=== PATIENT | female | born 1955 | race Caucasian/White ===

== ENCOUNTER 2017-02-08 17:36 | Inpatient (IN) | payer OTHER ==
[~2017-02-08] VITALS: Ht 167.6 cm; Wt 86.6 kg
[~2017-02-08 17:36] MED LIST: BACTRIM DS1 TAB PO; BG MC; CLE6PM IV; CLINDAMYCIN HC300 MG PO; COL100 PO; CYMBALTA60 M1 PO; HEP5I SC; HUMULIN R100 U/1 M1 SC; HYDROCHLOROTH12.5 M2 PO; INS7030 SC; LAC PO; LEV500PM IV; LIO10 PO; MAC100 PO; MORPHINE ER PO; MORPHINE SULFAT30 M2 PO; NAPROSYN500 MG PO; NEU100 PO; NEURONTIN800 MG PO; NOR10T; OMEPRAZOLE40 M1 PO; OXYCODONE AND A1 TA1 PO; PER5 PO; PERCOCET1 TA5 PO; RANITIDINE300 M1 PO; ROX5 PO; SOM350 PO; TIZANIDINE HCL4 MG PO; TRA50 PO; TRAMADOL HCL50 MG PO; TRE400 PO; ZAN4; ZESTRIL20 MG PO
--- NOTE | 2017-02-08 18:32 | NUR ---
PT IS A 61 YEAR ODL FEMALE, PRESENTS TO ED WITH C/O LEFT SIDED CHEST PAIN THAT RADAITES TO MID CHEST AREA, WITH A SHARP LIKE QUALITY AND CONSTANT SINCE 0200 THIS MORNING, PT REPORTS PAIN IS MILD AT TIMES, THEN GETS RANDOMLY EXACERBATED THROUGHOUT THE DAY. PT REPORTS PAIN WHEN SHE APPLIES PRESSURE TO LEFT CHEST AREA. PT BREATHING IS EVEN AND UNLABORED, NO S/S OF RSEPRAITORY DISTRESS. SPEECH IS CLEAR AND APPROPRIATE. PT A/O X4. PT DENIES ANY N/V/D/C. PT DENIES ANY DIZZINESS. PT HOOKED TO FULL BOOKKEEPING ASSISTANT. PT AWIAITING MSE.
--- NOTE | 2017-02-08 18:50 | NUR ---
PT GIVEN FIRST TAB OF NITRO 0.4MG SUBLINGUALLY. PT REPORTS CHEST PAIN OF 9/10 AT THIS TIME.
[2017-02-08 18:52] LABS: BASOPHIL % 0.5 % (0-2); PLATELET COUNT 220 x10^3mcL (130-400)
--- NOTE | 2017-02-08 18:55 | NUR ---
PT GIVEN 2ND TAB OF NITRO 0.4 MG SUBLINGUAL. PT REPORTS CHEST PAIN REMAINS AT 9/10.
[2017-02-08 18:58] LABS: RED CELL DISTRIBUTION WIDTH 15.1 % (11.5-14.5)
--- NOTE | 2017-02-08 19:00 | NUR ---
PT GIVEN 3RD TAB OF NITRO 0.4 MG SUBLINGUALLY. PT REPORTS CHEST PAIN WENT TO 8/10.
[2017-02-08 19:02] LABS: CALCIUM 10.8 mg/dL (8.5-10.1); CARBON DIOXIDE 30.1 mmol/L (21-32); CREATININE SERUM 1.5 mg/dL (0.6-1.0); POTASSIUM SERUM 4.4 mmol/L (3.5-5.1)
[2017-02-08 19:07] LABS: BILIRUBIN TOTAL 0.2 mg/dL (0.20-1.00)
[2017-02-08 19:08] LABS: ALBUMIN 3.3 g/dL (3.4-5.0)
--- NOTE | 2017-02-08 19:11 | NUR ---
REPORT GIVEN TO OLVIN PUGA, SHE WILL ASSUME CARE PRIMARY RN.
--- NOTE | 2017-02-08 19:40 | NUR ---
MEDS ADMIN PER MD ORDER FOR PAIN; SEE EMAR. PT STS PAIN WAS AT 7.5/10 AFTER ADMIN OF 3 NITRO TABS. PT AAO4; RESP E/U AT THIS TIME
--- NOTE | 2017-02-08 19:45 | NUR ---
BILAT NARES SWABBED FOR MRSA SCREENING.
--- NOTE | 2017-02-08 19:48 | NUR ---
REPORT GIVEN TO HALLIE TO ASSUME CARE OF PT
[2017-02-08] MEDS ORDERED: NOR5 PO (19:52)
[2017-02-08] MEDS ORDERED: MOT800 PO (19:52)
[2017-02-08] MEDS ORDERED: UNKNOWN INSULIN SQ (19:53)
[2017-02-08] MEDS ORDERED: DILAUDID4 MG PO (19:53)
[2017-02-08 20:32] VITALS: BP 157/86
[2017-02-08 20:35] LABS: CHOLESTEROL/HDL RATIO 3.9; MAGNESIUM 1.7 mg/dL (1.8-2.4); PHOSPHOROUS 3.1 mg/dL (2.5-4.9)
[2017-02-08 20:44] LABS: FREE T4 1.15 ng/dL (0.76-1.46); FREE THYROXINE INDEX 2.7 ug/dL (1.4-4.5); T4(THYROXINE) 7.7 ug/dL (4.7-13.3)
[2017-02-08 20:46] VITALS: BP 157/86
--- NOTE | 2017-02-08 21:00 | NUR ---
PATIENT RECEIVED FROM ED VIA GUERNEY ASSISTED BY RN. PATIENT C/O 6/10 INTERMITTENT SHARP CHEST PAIN, TOLERABLE AT THIS TIME. IV SITE TO RIGHT AC, PATENT AND INTACT. IV FLUID STARTED PER DOCTOR'S ORDER. BED IN LOWEST POSITION. PATIENT ORIENTED TO ROOM AND CALL LIGHT. WILL CONTINUE TO MONITOR.
[2017-02-08 21:13] LABS: T3 TOTAL 0.86 ng/mL
[2017-02-09] MEDS ORDERED: ALD25 PO (01:33)
[2017-02-09] MEDS ORDERED: RANITIDINE HYD300 MG PO (01:43)
[2017-02-09] MEDS ORDERED: CILOSTAZOL100 M1 PO ×2 (02:36→02:37)
[2017-02-09] MEDS ORDERED: HYDROMORPHONE PO (02:51)
--- NOTE | 2017-02-09 05:03 | NUR ---
PATIENT RESTED THROUGHOUT THE NIGHT. NO C/O CHEST PAIN. SAFETY AND COMFORT MEASURES MAINTAINED. BED IN LOWEST POSITION. CALL LIGHT WITHIN REACH. WILL CONTINUE TO MONITOR AND ENDORSE TO NEXT SHIFT NURSE.
[2017-02-09 05:59] VITALS: BP 141/75
[2017-02-09 06:32] LABS: BASOPHIL % 0.4 % (0-2); PLATELET COUNT 205 x10^3mcL (130-400)
[2017-02-09 06:45] LABS: CALCIUM 10.3 mg/dL (8.5-10.1); CARBON DIOXIDE 24.3 mmol/L (21-32); CREATININE SERUM 1.1 mg/dL (0.6-1.0); MAGNESIUM 1.8 mg/dL (1.8-2.4); POTASSIUM SERUM 4.2 mmol/L (3.5-5.1); RED CELL DISTRIBUTION WIDTH 15.1 % (11.5-14.5)
--- NOTE | 2017-02-09 08:00 | NUR ---
RECEIVED PATIENT A/A/OX3. DENIED CHEST PAIN NOW. TELE#23 = SR; HR =78. NO RESP DISTRESS ON RA. LT FOOT PARTIAL AMPUTATED. AMBULATED WITH CANE. IVF OF NS 100CC/HR INFUSIGN WELLT O LAC. IV SITE CLEAN. FINISHED 100% OF BREAKFAST. CALL LIGHT IN REACH.
--- NOTE | 2017-02-09 08:15 | NUR ---
DR. GR AND MEDICAL TEAM MADE MORNING ROUND. PLAN OF CARE DISCUSSED WITH PATIENT, INCLUDED WITH DR. BLACKWOOD, CHEMICAL CELL CHANGER CONSULTATION. PATIENT AGREED WITH PLAN OF CARE.
[2017-02-09 10:10] VITALS: BP 126/66
[2017-02-09 13:56] VITALS: BP 101/77
[2017-02-09 18:02] LABS: UA SPECIFIC GRAVITY <=1.005 (1.005-1.035); microscopic required? YES; urine erythrocyte NEGATIVE (NEGATIVE)
[2017-02-09 18:13] LABS: AMPHETAMINE QUAL UR NONE DETECTED (NEG <=1000)
--- NOTE | 2017-02-09 18:49 | NUR ---
NO CHEST PAIN THIS SHIFT. TRIPONIN NEGATIVE X3. ENDORSED CARE TO NOC NURSE.
--- NOTE | 2017-02-09 19:25 | NUR ---
PT ALERT/ORIENTED X4. NO C/O PAIN. TELE # 23, SR, HR; 63. PT STATES WANTS TO GO HOME WANTS TO SPEAK WITH THE DR., DR PETTY MADE AWARE OF PT REQUEST. PT ASSESSED; SEE NSG FLOWSHEET. SAFETY REINFORCED; SEE EDUCAT SHEET. WILL CONTINUE TO MONITOR.
--- NOTE | 2017-02-09 20:00 | NUR ---
DR MENDEZ AND MYSELF IN PT ROOM. DR MENDEZ INFORMING PT OF THE REASONING TO STAY IN THE HOSPITAL.
[2017-02-09 20:06] VITALS: BP 151/46
[2017-02-09 20:14] VITALS: BP 149/70
--- NOTE | 2017-02-09 20:30 | NUR ---
PT STATED SHE WILL NOT LEAVE AND STAY IN THE HOSPITAL.
--- NOTE | 2017-02-09 21:00 | NUR ---
INFORMED DR MENDEZ OF PT UA RESULTS, NO NEW ORDERS GIVEN OF YET.
--- NOTE | 2017-02-09 22:22 | NUR ---
PT REQUESTING SLEEP AID. T/C TO DR PETTY AND INFORM HIM OF PT REQUEST.
--- NOTE | 2017-02-09 22:48 | NUR ---
NO SLEEP AID GIVEN AT THIS TIME, PT SLEEPING.
--- NOTE | 2017-02-10 01:25 | NUR ---
PT SLEEPING.NO DISTRESS NOTED. WILL CONTINUE TO MONITOR.
--- NOTE | 2017-02-10 02:54 | NUR ---
PT AWAKE. NO C/O PAIN. WILL CONTINUE TO MONITOR.
--- NOTE | 2017-02-10 05:23 | NUR ---
PT SLEPT IN LONG INTERVALS THROUGHOUT THE NIGHT. NO DISTRESS NOTED. NO C/O CP. WILL CONTINUE TO MONITOR.
[2017-02-10 05:56] VITALS: BP 154/72
[2017-02-10 06:48] LABS: CALCIUM 10.7 mg/dL (8.5-10.1); CARBON DIOXIDE 25.5 mmol/L (21-32); CHLORIDE SERUM 108 mmol/L (98-107); GFR1 > 60 mL/min; GLUCOSE SERUM 176 mg/dL (74-106); MAGNESIUM 1.9 mg/dL (1.8-2.4); POTASSIUM SERUM 5.1 mmol/L (3.5-5.1); SODIUM SERUM 139 mmol/L (136-145)
--- NOTE | 2017-02-10 07:20 | NUR ---
RECEIVED PATIENT AWAKE/ALERT SIT AT SIDE OF BED, DENIES CP, STATE FEEL BETTER WANT TO GO HOME. INFORM PATIENT WHEN DOCTOR MAKE ROUND WILL FIND IF MD DISCHARGE TODAY. POC UPDATED. CALL LIGHT WITHIN REACH.
[2017-02-10 09:54] VITALS: BP 159/70
--- NOTE | 2017-02-10 10:24 | NUR ---
PATIENT SIT IN A CHAIR AT THIS TIME, ALL DUE MEDS GIVEN. C/O IV HURT CHECKING SITE NOTED REDNESS; DC'D IV SITE AND BA APPLIED. GIVE PATIENT DTR PHONE # PER REQUEST; PER PATIENT TRY TO CALL DTR SHAJI NO ANSWER AND LEFT MESSAGE. MOTRIN 800MG PO GIVEN FOR C/O 6/10 PAIN TO LEG. NEEDS ANTICIPATED.
[2017-02-10 11:25] VITALS: BP 159/70
[2017-02-10] MEDS ORDERED: HYDROMORPHONE PO (12:06)
[2017-02-10] MEDS ORDERED: RANITIDINE HYD300 MG PO (12:06)
[2017-02-10] MEDS ORDERED: BAY PO (12:08)
[2017-02-10] MEDS ORDERED: ATORVASTATIN CA40 M1 PO (12:09)
--- NOTE | 2017-02-10 12:10 | NUR ---
PATIENT ALREADY GET DRESS STATE CAN'T WAIT FOR DOCTOR TO FINISH UP DISCHARGE PAPERWORK; PATIENT STATE "I HAVE TO LEAVE MY DTR WAITING FOR HER IN THE CAR." DR. LAW WAS MADE AWARE PATIENT CAN NOT WAIT AND WILL LEAVE AMA. PATIENT SIGN AMA; ASSISTING PATIENT OUT TO LOBBY WITH ALL BELONGINGS. ADVISE PATIENT TO F/U WITH PCP SOON POSSIBLE. PATIENT VERBALIZE WILL CALL DOCTOR TOMORROW.
[2017-02-10] MEDS ORDERED: NOVI SQ (12:11)
== END 2017-02-10 12:15 | disposition left against medical advice (07) | DRG 205 ==
LOC: ED 17:36 → DU 19:32 → MU 02-10 11:04
PROVIDERS: Emergency Medicine; ADMIT Family Medicine
DX: M94.0 Chondrocostal junction syndrome [Tietze] (principal); N17.0 Acute kidney failure with tubular necrosis; E83.42 Hypomagnesemia; E11.65 Type 2 diabetes mellitus with hyperglycemia; E11.51 Type 2 diabetes mellitus with diabetic peripheral angiopathy without gangrene; E11.40 Type 2 diabetes mellitus with diabetic neuropathy, unspecified; E78.1 Pure hyperglyceridemia; I10 Essential (primary) hypertension; I08.1 Rheumatic disorders of both mitral and tricuspid valves; M47.896 Other spondylosis, lumbar region; E66.9 Obesity, unspecified; Z68.30 Body mass index [BMI] 30.0-30.9, adult; Z79.4 Long term (current) use of insulin; Z89.422 Acquired absence of other left toe(s); Z72.0 Tobacco use
CPT/HCPCS: 83880; 84439; J1815; J2270; J7030; Q0092

== ENCOUNTER 2018-01-14 20:38 | Inpatient (IN) | payer OTHER ==
[~2018-01-14] VITALS: Ht 167.6 cm; Wt 83.0 kg
[~2018-01-14 20:38] MED LIST changes: +ALD25 PO; +ATORVASTATIN CA40 M1 PO; +BAY PO; +CILOSTAZOL100 M1 PO; +DILAUDID4 MG PO; +HYDROMORPHONE PO; +MOT800 PO; +NOR5 PO; +NOVI SQ; +RANITIDINE HYD300 MG PO; +UNKNOWN INSULIN SQ
[2018-01-14 21:34] LABS: BASOPHIL % 0.2 % (0-2); PLATELET COUNT 304 x10^3mcL (130-400)
[2018-01-14 21:44] LABS: CALCIUM 11.9 mg/dL (8.5-10.1); CARBON DIOXIDE 23.9 mmol/L (21-32); CREATININE SERUM 1.8 mg/dL (0.6-1.0); POTASSIUM SERUM 3.6 mmol/L (3.5-5.1)
[2018-01-14 21:48] LABS: BILIRUBIN TOTAL 0.3 mg/dL (0.20-1.00); TOTAL PROTEIN, SERUM 7.9 g/dL (6.4-8.2)
[2018-01-14 21:50] LABS: ALBUMIN 2.8 g/dL (3.4-5.0)
[2018-01-15] MEDS ORDERED: CLOZAPINE100 MG PO ×3 (00:58→11:00)
[2018-01-15] MEDS ORDERED: PRILOSEC OTC20 M1 PO (00:58)
[2018-01-15] MEDS ORDERED: CLINDAMYCIN HC300 MG PO (00:59)
[2018-01-15] MEDS ORDERED: ZANAFLEX CAPSULE4 MG PO (01:00)
[2018-01-15] MEDS ORDERED: LINZESS145 MC1 (01:00)
[2018-01-15 01:23] LABS: microscopic required? YES; urine erythrocyte 1+ (NEGATIVE)
[2018-01-15 01:32] LABS: AMPHETAMINE QUAL UR NONE DETECTED
[2018-01-15 01:33] VITALS: BP 121/621
[2018-01-15 01:37] LABS: PHOSPHOROUS 3.6 mg/dL (2.5-4.9)
[2018-01-15 01:38] LABS: CHOLESTEROL/HDL RATIO 4.6
[2018-01-15 02:05] LABS: T3 TOTAL 0.64 ng/mL
[2018-01-15 02:06] LABS: FREE T4 1.41 ng/dL (0.76-1.46); FREE THYROXINE INDEX 3.2 ug/dL (1.4-4.5); T4(THYROXINE) 8.3 ug/dL (4.7-13.3)
[2018-01-15 02:30] LABS: RED BLOOD CELLS 4.04 M/mm3 (4.10-5.10)
[2018-01-15 02:31] LABS: IRON 15 ug/dL (50-170); TOTAL IRON BINDING CAPACITY 203 ug/dL (250-450)
[2018-01-15 05:39] VITALS: BP 101/61
[2018-01-15 07:19] LABS: CALCIUM 10.7 mg/dL (8.5-10.1); CARBON DIOXIDE 21.4 mmol/L (21-32); CREATININE SERUM 1.6 mg/dL (0.6-1.0); MAGNESIUM 1.7 mg/dL (1.8-2.4); PHOSPHOROUS 3.5 mg/dL (2.5-4.9); POTASSIUM SERUM 3.5 mmol/L (3.5-5.1)
[2018-01-15 07:22] LABS: BASOPHIL % 0.2 % (0-2); PLATELET COUNT 306 x10^3mcL (130-400); RED CELL DISTRIBUTION WIDTH 13.3 % (11.5-14.5)
[2018-01-15 10:19] VITALS: BP 107/54
[2018-01-15 14:16] VITALS: BP 93/45
[2018-01-15 17:48] VITALS: BP 108/52
[2018-01-15 21:33] VITALS: BP 143/67
[2018-01-16 06:19] VITALS: BP 124/54
[2018-01-16 07:26] LABS: CALCIUM 11.2 mg/dL (8.5-10.1); CARBON DIOXIDE 21.2 mmol/L (21-32); CREATININE SERUM 1.4 mg/dL (0.6-1.0); MAGNESIUM 2.2 mg/dL (1.8-2.4); PHOSPHOROUS 3.1 mg/dL (2.5-4.9); POTASSIUM SERUM 4.5 mmol/L (3.5-5.1)
[2018-01-16 07:37] LABS: BASOPHIL % 0.5 % (0-2); PLATELET COUNT 292 x10^3mcL (130-400); RED CELL DISTRIBUTION WIDTH 13.5 % (11.5-14.5)
[2018-01-16 09:15] VITALS: BP 116/64
[2018-01-16 17:48] VITALS: BP 146/63
[2018-01-16 21:07] VITALS: BP 142/77
[2018-01-17 05:46] VITALS: BP 127/54
[2018-01-17 07:19] LABS: BASOPHIL % 0.2 % (0-2); PLATELET COUNT 302 x10^3mcL (130-400); RED CELL DISTRIBUTION WIDTH 13.4 % (11.5-14.5)
[2018-01-17 07:28] LABS: CALCIUM 11.5 mg/dL (8.5-10.1); CARBON DIOXIDE 20.8 mmol/L (21-32); CREATININE SERUM 1.1 mg/dL (0.6-1.0); MAGNESIUM 1.9 mg/dL (1.8-2.4); PHOSPHOROUS 2.1 mg/dL (2.5-4.9); POTASSIUM SERUM 5.2 mmol/L (3.5-5.1)
[2018-01-17 10:20] VITALS: BP 136/62
[2018-01-17 12:21] VITALS: BP 104/54
[2018-01-17 13:38] VITALS: BP 104/54
[2018-01-17 15:32] VITALS: Ht 167.6 cm; Wt 83.0 kg
[2018-01-17 17:42] VITALS: BP 112/46
[2018-01-17 21:38] VITALS: BP 127/58
[2018-01-18 05:09] VITALS: BP 157/71
[2018-01-18 07:01] LABS: CARBON DIOXIDE 23.7 mmol/L (21-32); CHLORIDE SERUM 109 mmol/L (98-107); CREATININE SERUM 0.9 mg/dL (0.6-1.0); GFR1 > 60 mL/min; GLUCOSE SERUM 125 mg/dL (74-106); PHOSPHOROUS 2.4 mg/dL (2.5-4.9); POTASSIUM SERUM 4.7 mmol/L (3.5-5.1); SODIUM SERUM 140 mmol/L (136-145)
[2018-01-18 07:36] LABS: BASOPHIL % 1.4 % (0-2); PLATELET COUNT 294 x10^3mcL (130-400); RED CELL DISTRIBUTION WIDTH 13.4 % (11.5-14.5)
[2018-01-18 10:21] VITALS: BP 157/68
[2018-01-18] MEDS ORDERED: LAC PO (12:59)
[2018-01-18] MEDS ORDERED: LEVOFLOXACIN750 M1 PO (12:59)
[2018-01-18] MEDS ORDERED: CLINDAMYCIN HC300 MG PO (12:59)
[2018-01-18 15:06] VITALS: BP 138/67
== END 2018-01-18 16:55 | disposition left against medical advice (07) | DRG 579 ==
LOC: ED 20:38 → DU 01-15 00:37
PROVIDERS: Emergency Medicine; Family Medicine; Student in an Organized Health Care Education/Training Program; Surgery
PROC: 0W950ZZ Drainage of Lower Jaw, Open Approach (ICD-10-PCS; principal; 2018-01-17 11:00)
DX: L03.211 Cellulitis of face (principal); E43 Unspecified severe protein-calorie malnutrition; N17.0 Acute kidney failure with tubular necrosis; N39.0 Urinary tract infection, site not specified; L02.31 Cutaneous abscess of buttock; E87.1 Hypo-osmolality and hyponatremia; E11.65 Type 2 diabetes mellitus with hyperglycemia; E11.51 Type 2 diabetes mellitus with diabetic peripheral angiopathy without gangrene; E83.39 Other disorders of phosphorus metabolism; E83.52 Hypercalcemia; M54.9 Dorsalgia, unspecified; G89.29 Other chronic pain; D64.89 Other specified anemias; I10 Essential (primary) hypertension; E78.5 Hyperlipidemia, unspecified; Z98.1 Arthrodesis status; Z89.412 Acquired absence of left great toe; Z68.32 Body mass index [BMI] 32.0-32.9, adult
CPT/HCPCS: 82652; 83880; 84439; 94150; J0330; J1644; J1885; J1956; J2001; J2405; J2704; J3010; J3490; J7030; Q0092; Q9967

== ENCOUNTER 2018-02-24 14:08 | Emergency (ER) | payer OTHER ==
[~2018-02-24] VITALS: Ht 167.6 cm; Wt 81.6 kg
[~2018-02-24 14:08] MED LIST changes: +CLOZAPINE100 MG PO; +LEVOFLOXACIN750 M1 PO; +LINZESS145 MC1; +PRILOSEC OTC20 M1 PO; +ZANAFLEX CAPSULE4 MG PO
[2018-02-24 14:24] VITALS: Ht 167.6 cm; Wt 81.6 kg
[2018-02-24 21:38] VITALS: BP 106/67
== END 2018-02-24 21:38 | disposition home or self-care (01) ==
LOC: ED 14:08
DX: T40.2X1A Poisoning by other opioids, accidental (unintentional), initial encounter (principal); Y92.89 Other specified places as the place of occurrence of the external cause; I10 Essential (primary) hypertension; E11.9 Type 2 diabetes mellitus without complications; Z90.710 Acquired absence of both cervix and uterus
CPT/HCPCS: J1885

== ENCOUNTER 2018-06-26 07:27 | Inpatient (IN) | payer OTHER ==
[~2018-06-26] VITALS: Ht 167.6 cm; Wt 83.3 kg
[2018-06-26 08:37] LABS: RED CELL DISTRIBUTION WIDTH 13.6 % (11.5-14.5)
[2018-06-26 08:45] LABS: BASOPHIL % 0 % (0-2); PLATELET COUNT 218 x10^3mcL (130-400)
[2018-06-26 09:09] LABS: ALBUMIN 2.7 g/dL (3.4-5.0); BILIRUBIN TOTAL 0.18 mg/dL (0.20-1.00); CALCIUM 9.2 mg/dL (8.5-10.1); CARBON DIOXIDE 13.3 mmol/L (21-32); POTASSIUM SERUM 4.7 mmol/L (3.5-5.1); T4(THYROXINE) 4.6 ug/dL (4.7-13.3); TOTAL PROTEIN, SERUM 6.4 g/dL (6.4-8.2)
[2018-06-26 09:10] LABS: CREATININE SERUM 4.8 mg/dL (0.6-1.0)
[2018-06-26 09:23] LABS: microscopic required? YES; urine erythrocyte 3+ (NEGATIVE)
[2018-06-26 11:19] LABS: AMPHETAMINE QUAL UR NONE DETECTED (See below)
[2018-06-26 12:07] VITALS: BP 96/44
[2018-06-26 12:44] LABS: CARBON DIOXIDE 10.7 mmol/L (21-32); CREATININE SERUM 4.7 mg/dL (0.6-1.0); POTASSIUM SERUM 4.6 mmol/L (3.5-5.1)
[2018-06-26] MEDS ORDERED: RANITIDINE HYD300 MG PO (14:45)
[2018-06-26] MEDS ORDERED: CYMBALTA60 M1 PO (14:46)
[2018-06-26] MEDS ORDERED: TIZANIDINE HCL4 MG PO (14:47)
[2018-06-26] MEDS ORDERED: NEURONTIN800 MG PO (14:48)
[2018-06-26] MEDS ORDERED: ZOF4 PO (14:50)
[2018-06-26] MEDS ORDERED: CYCLOBENZAPRINE10 MG PO (14:58)
[2018-06-26] MEDS ORDERED: ASPIR 8181 MG PO (14:58)
[2018-06-26] MEDS ORDERED: PHENTERMINE HYD30 MG PO (15:02)
[2018-06-26] MEDS ORDERED: LINZESS145 MC1 PO (15:03)
[2018-06-26] MEDS ORDERED: DOXYCYCLINE HY100 MG PO (15:04)
[2018-06-26] MEDS ORDERED: IBUPROFEN400 MG PO (15:06)
[2018-06-26] MEDS ORDERED: CLEOCIN HCL300 MG PO (15:07)
[2018-06-26] MEDS ORDERED: FUROSEMIDE20 MG PO (15:09)
[2018-06-26] MEDS ORDERED: LIPITOR40 MG PO (15:10)
[2018-06-26 15:36] VITALS: BP 105/49
[2018-06-26 18:13] LABS: CALCIUM 9.1 mg/dL (8.5-10.1); CARBON DIOXIDE 10.2 mmol/L (21-32)
[2018-06-26 18:36] LABS: CREATININE SERUM 4.6 mg/dL (0.6-1.0)
[2018-06-26 19:15] VITALS: BP 81/42
[2018-06-26 20:37] LABS: CALCIUM 8.8 mg/dL (8.5-10.1); POTASSIUM SERUM 3.5 mmol/L (3.5-5.1)
[2018-06-26 20:54] LABS: CREATININE SERUM 4.6 mg/dL (0.6-1.0)
[2018-06-27] VITALS (13 sets, daily range): BP systolic 80–132; BP diastolic 44–80
[2018-06-27 00:48] LABS: CARBON DIOXIDE 10.7 mmol/L (21-32); POTASSIUM SERUM 4.3 mmol/L (3.5-5.1)
[2018-06-27 00:51] LABS: CREATININE SERUM 4.3 mg/dL (0.6-1.0)
[2018-06-27 05:51] LABS: CALCIUM 8.6 mg/dL (8.5-10.1); CARBON DIOXIDE 15.1 mmol/L (21-32); POTASSIUM SERUM 3.1 mmol/L (3.5-5.1)
[2018-06-27 05:55] LABS: CREATININE SERUM 4.4 mg/dL (0.6-1.0)
[2018-06-27 08:29] LABS: CALCIUM 8.7 mg/dL (8.5-10.1); CARBON DIOXIDE 16.8 mmol/L (21-32); POTASSIUM SERUM 3.4 mmol/L (3.5-5.1)
[2018-06-27 08:42] LABS: CREATININE SERUM 4.5 mg/dL (0.6-1.0)
[2018-06-27 18:57] LABS: CALCIUM 8.6 mg/dL (8.5-10.1); CARBON DIOXIDE 15.6 mmol/L (21-32); POTASSIUM SERUM 3.9 mmol/L (3.5-5.1)
[2018-06-27 19:05] LABS: CREATININE SERUM 4.1 mg/dL (0.6-1.0)
[2018-06-28] VITALS (19 sets, daily range): BP systolic 101–142; BP diastolic 56–88
[2018-06-28 05:43] LABS: PLATELET COUNT 179 x10^3mcL (130-400)
[2018-06-28 05:47] LABS: BASOPHIL % 0 % (0-2)
[2018-06-28 05:58] LABS: BILIRUBIN TOTAL 0.3 mg/dL (0.20-1.00); CALCIUM 8.6 mg/dL (8.5-10.1); CARBON DIOXIDE 19.1 mmol/L (21-32); CREATININE SERUM 3.8 mg/dL (0.6-1.0); MAGNESIUM 1.4 mg/dL (1.8-2.4); PHOSPHOROUS 3.8 mg/dL (2.5-4.9); POTASSIUM SERUM 3.5 mmol/L (3.5-5.1)
[2018-06-28 06:02] LABS: ALBUMIN 2.1 g/dL (3.4-5.0); TOTAL PROTEIN, SERUM 5.7 g/dL (6.4-8.2)
[2018-06-29] VITALS (18 sets, daily range): BP systolic 112–163; BP diastolic 59–121; Ht 167.6 cm; Wt 83.3 kg
[2018-06-29 05:43] LABS: PLATELET COUNT 194 x10^3mcL (130-400)
[2018-06-29 05:44] LABS: BASOPHIL % 0 % (0-2)
[2018-06-29 05:50] LABS: BILIRUBIN TOTAL 0.34 mg/dL (0.20-1.00); CALCIUM 9.5 mg/dL (8.5-10.1); PHOSPHOROUS 3.3 mg/dL (2.5-4.9)
[2018-06-29 05:52] LABS: ALBUMIN 2.1 g/dL (3.4-5.0); TOTAL PROTEIN, SERUM 5.8 g/dL (6.4-8.2)
[2018-06-29 05:53] LABS: POTASSIUM SERUM 2.8 mmol/L (3.5-5.1)
[2018-06-30] VITALS (18 sets, daily range): BP systolic 131–171; BP diastolic 71–90
[2018-06-30 05:49] LABS: BASOPHIL % 0.3 % (0-2); PLATELET COUNT 206 x10^3mcL (130-400)
[2018-06-30 05:54] LABS: RED CELL DISTRIBUTION WIDTH 15.3 % (11.5-14.5)
[2018-06-30 07:03] LABS: CALCIUM 10.9 mg/dL (8.5-10.1); CARBON DIOXIDE 28.3 mmol/L (21-32); CREATININE SERUM 2.6 mg/dL (0.6-1.0)
[2018-07-01] VITALS (13 sets, daily range): BP systolic 112–175; BP diastolic 70–94
[2018-07-01 05:19] LABS: BASOPHIL % 0.3 % (0-2); PLATELET COUNT 205 x10^3mcL (130-400)
[2018-07-01 05:24] LABS: RED CELL DISTRIBUTION WIDTH 14.6 % (11.5-14.5)
[2018-07-01 05:41] LABS: BILIRUBIN TOTAL 0.49 mg/dL (0.20-1.00); CALCIUM 10.8 mg/dL (8.5-10.1); CARBON DIOXIDE 30.6 mmol/L (21-32); CREATININE SERUM 2.4 mg/dL (0.6-1.0); PHOSPHOROUS 2.8 mg/dL (2.5-4.9); POTASSIUM SERUM 3.1 mmol/L (3.5-5.1)
[2018-07-01 05:45] LABS: ALBUMIN 2.4 g/dL (3.4-5.0)
[2018-07-02] VITALS: BP 149/87
[2018-07-02 04:01] VITALS: BP 145/77
[2018-07-02 05:36] LABS: BASOPHIL % 0.2 % (0-2); PLATELET COUNT 181 x10^3mcL (130-400)
[2018-07-02 05:37] LABS: RED CELL DISTRIBUTION WIDTH 14.6 % (11.5-14.5)
[2018-07-02 05:50] LABS: ALKALINE PHOSPHATASE 160 U/L (46-116); ALT/SGPT 31 U/L (14-59); AST/SGOT 30 U/L (15-37); BILIRUBIN TOTAL 0.57 mg/dL (0.20-1.00); CALCIUM 10.5 mg/dL (8.5-10.1); CARBON DIOXIDE 26.3 mmol/L (21-32); CHLORIDE SERUM 107 mmol/L (98-107); CREATININE SERUM 2.3 mg/dL (0.6-1.0); GFR1 23 mL/min; GLUCOSE SERUM 204 mg/dL (74-106); PHOSPHOROUS 3.2 mg/dL (2.5-4.9); POTASSIUM SERUM 3.7 mmol/L (3.5-5.1); SODIUM SERUM 146 mmol/L (136-145); TOTAL PROTEIN, SERUM 6.8 g/dL (6.4-8.2)
[2018-07-02 05:52] LABS: ALBUMIN 2.4 g/dL (3.4-5.0)
[2018-07-02 07:58] VITALS: BP 130/77
[2018-07-02 13:23] VITALS: BP 128/68
[2018-07-02 17:31] VITALS: BP 113/79
[2018-07-02 20:55] VITALS: BP 141/73
[2018-07-03 05:08] VITALS: BP 126/69
[2018-07-03 07:26] LABS: BASOPHIL % 0.2 % (0-2); PLATELET COUNT 164 x10^3mcL (130-400); RED CELL DISTRIBUTION WIDTH 14.3 % (11.5-14.5)
[2018-07-03 07:40] LABS: CARBON DIOXIDE 27.2 mmol/L (21-32); CREATININE SERUM 2.4 mg/dL (0.6-1.0); POTASSIUM SERUM 3.1 mmol/L (3.5-5.1)
[2018-07-03 09:15] VITALS: BP 138/77
[2018-07-03 12:56] VITALS: BP 134/69
[2018-07-03 17:07] VITALS: BP 141/76
[2018-07-03 20:51] VITALS: BP 135/86
[2018-07-04 05:10] VITALS: BP 121/54
[2018-07-04 06:31] LABS: BILIRUBIN TOTAL 0.4 mg/dL (0.20-1.00); CALCIUM 10.4 mg/dL (8.5-10.1); CARBON DIOXIDE 24.3 mmol/L (21-32); CREATININE SERUM 2.5 mg/dL (0.6-1.0); PHOSPHOROUS 3.7 mg/dL (2.5-4.9); POTASSIUM SERUM 3.8 mmol/L (3.5-5.1); TOTAL PROTEIN, SERUM 6.3 g/dL (6.4-8.2)
[2018-07-04 06:45] LABS: ALBUMIN 2.3 g/dL (3.4-5.0)
[2018-07-04 07:25] VITALS: BP 121/54
[2018-07-04 09:48] VITALS: BP 125/72
[2018-07-04 11:22] VITALS: BP 125/72
[2018-07-04 12:05] LABS: PLATELET COUNT 157 x10^3mcL (130-400); RED CELL DISTRIBUTION WIDTH 14.7 % (11.5-14.5)
[2018-07-04 12:09] LABS: ATYPICAL LYMPH 1 %; BAND NEUTROPHIL 1 % (0-10); BASOPHIL 0 % (0-2); MONOCYTE 2 % (0-7); PLATELET MORPHOLOGY PLATELETS DECREASED; SEGMENTED NEUTROPHILS 67 % (37-75)
[2018-07-04 12:10] LABS: rbc morphology (normal/abnorm) ABNORMAL (NORMAL)
== END 2018-07-04 14:51 | disposition home or self-care (01) | DRG 871 ==
LOC: ED 07:27 → DU 09:49 → IC 09:49 → DU 07-02 13:43
PROVIDERS: Emergency Medicine; Internal Medicine
PROC: 0BH17EZ Insertion of Endotracheal Airway into Trachea, Via Natural or Artificial Opening (ICD-10-PCS; principal; 2018-06-27)
PROC: 5A1945Z Respiratory Ventilation, 24-96 Consecutive Hours (ICD-10-PCS; 2018-06-27)
PROC: 05HM33Z Insertion of Infusion Device into Right Internal Jugular Vein, Percutaneous Approach (ICD-10-PCS; 2018-06-27)
PROC: B543ZZA Ultrasonography of Right Jugular Veins, Guidance (ICD-10-PCS; 2018-06-27)
DX: A41.9 Sepsis, unspecified organism (principal); E11.10 Type 2 diabetes mellitus with ketoacidosis without coma; J69.0 Pneumonitis due to inhalation of food and vomit; J96.01 Acute respiratory failure with hypoxia; R65.21 Severe sepsis with septic shock; G93.41 Metabolic encephalopathy; N39.0 Urinary tract infection, site not specified; E87.2 Acidosis; N17.9 Acute kidney failure, unspecified; E11.51 Type 2 diabetes mellitus with diabetic peripheral angiopathy without gangrene; J44.9 Chronic obstructive pulmonary disease, unspecified; I25.10 Atherosclerotic heart disease of native coronary artery without angina pectoris; Z79.4 Long term (current) use of insulin; Z89.422 Acquired absence of other left toe(s); Z68.29 Body mass index [BMI] 29.0-29.9, adult; F17.210 Nicotine dependence, cigarettes, uncomplicated; Z91.19 Patient's noncompliance with other medical treatment and regimen
CPT/HCPCS: 36556; 36600; 82962; 83880; 90658; A4628; J1642; J1644; J1815; J1956; J2270; J2543; J2550; J2704; J3010; J3475; J3480; J3490; J7030; J7040; J7042; J7050; J7070; J7620; P9047; Q0092

== ENCOUNTER 2018-12-24 16:26 | Inpatient (IN) | payer OTHER ==
[~2018-12-24] VITALS: Ht 167.6 cm; Wt 73.7 kg
[~2018-12-24 16:26] MED LIST changes: +ASPIR 8181 MG PO; +CLEOCIN HCL300 MG PO; +CYCLOBENZAPRINE10 MG PO; +DOXYCYCLINE HY100 MG PO; +FUROSEMIDE20 MG PO; +IBUPROFEN400 MG PO; +LINZESS145 MC1 PO; +LIPITOR40 MG PO; +PHENTERMINE HYD30 MG PO; +ZOF4 PO
[2018-12-24 17:10] LABS: BASOPHIL % 0.2 % (0-2); PLATELET COUNT 160 x10^3mcL (130-400)
[2018-12-24 17:14] LABS: RED CELL DISTRIBUTION WIDTH 14.7 % (11.5-14.5)
[2018-12-24 17:26] LABS: CALCIUM 9.6 mg/dL (8.5-10.1); CARBON DIOXIDE 20.9 mmol/L (21-32); CHLORIDE SERUM 103 mmol/L (98-107); CREATININE SERUM 2.4 mg/dL (0.6-1.0); GFR1 22 mL/min; GLUCOSE SERUM 168 mg/dL (74-106); POTASSIUM SERUM 4.9 mmol/L (3.5-5.1); SODIUM SERUM 132 mmol/L (136-145)
[2018-12-24 17:30] LABS: ALBUMIN 3.1 g/dL (3.4-5.0); ALKALINE PHOSPHATASE 122 U/L (46-116); ALT/SGPT 31 U/L (14-59); AST/SGOT 35 U/L (15-37); BILIRUBIN TOTAL 0.3 mg/dL (0.20-1.00); TOTAL PROTEIN, SERUM 6.4 g/dL (6.4-8.2)
[2018-12-24 17:42] LABS: AMPHETAMINE QUAL UR NONE DETECTED (See below)
[2018-12-24] MEDS ORDERED: DILAUDID2 MG (19:04)
[2018-12-24] MEDS ORDERED: GABAPENTIN100 M2 (19:04)
[2018-12-24 20:05] VITALS: BP 156/107
[2018-12-24 20:16] VITALS: Ht 167.6 cm; Wt 73.7 kg
[2018-12-25 05:46] VITALS: BP 140/74
[2018-12-25 06:16] LABS: BASOPHIL % 0.1 % (0-2); PLATELET COUNT 172 x10^3mcL (130-400)
[2018-12-25 06:30] LABS: RED CELL DISTRIBUTION WIDTH 14.9 % (11.5-14.5)
[2018-12-25 06:36] LABS: BILIRUBIN TOTAL 0.34 mg/dL (0.20-1.00); CALCIUM 10.3 mg/dL (8.5-10.1); CARBON DIOXIDE 17.8 mmol/L (21-32); CREATININE SERUM 2.1 mg/dL (0.6-1.0); POTASSIUM SERUM 5.3 mmol/L (3.5-5.1); TOTAL PROTEIN, SERUM 6.6 g/dL (6.4-8.2)
[2018-12-25 06:39] LABS: ALBUMIN 3.1 g/dL (3.4-5.0)
[2018-12-25 07:52] VITALS: BP 135/72
[2018-12-25 12:56] VITALS: BP 143/75
[2018-12-25 15:58] VITALS: BP 142/78
[2018-12-25 21:52] VITALS: BP 163/83
[2018-12-26 05:49] VITALS: BP 159/86
[2018-12-26 06:21] LABS: PLATELET COUNT 219 x10^3mcL (130-400)
[2018-12-26 06:44] LABS: CALCIUM 10.9 mg/dL (8.5-10.1); CARBON DIOXIDE 17.5 mmol/L (21-32); CREATININE SERUM 1.6 mg/dL (0.6-1.0); POTASSIUM SERUM 4.4 mmol/L (3.5-5.1)
[2018-12-26 07:24] LABS: BASOPHIL % 0 % (0-2); RED CELL DISTRIBUTION WIDTH 15.2 % (11.5-14.5)
[2018-12-26 09:23] VITALS: BP 157/87
[2018-12-26 12:39] VITALS: BP 112/68
[2018-12-26 14:43] VITALS: BP 112/68
== END 2018-12-26 16:06 | disposition home or self-care (01) | DRG 917 ==
LOC: ED 16:26 → DU 18:48
PROVIDERS: Emergency Medicine; Internal Medicine; ADMIT Internal Medicine
DX: T40.601A Poisoning by unspecified narcotics, accidental (unintentional), initial encounter (principal); G93.41 Metabolic encephalopathy; N17.9 Acute kidney failure, unspecified; I12.9 Hypertensive chronic kidney disease with stage 1 through stage 4 chronic kidney disease, or unspecified chronic kidney disease; E11.22 Type 2 diabetes mellitus with diabetic chronic kidney disease; F11.229 Opioid dependence with intoxication, unspecified; N18.9 Chronic kidney disease, unspecified; Y92.009 Unspecified place in unspecified non-institutional (private) residence as the place of occurrence of the external cause
CPT/HCPCS: 82962; G0480; J2310; J2405; J3490; J7042

== ENCOUNTER → 2019-02-02 | Outpatient (CLI) | payer OTHER, MEDICAID ==
[~2019-02-02] MED LIST changes: +DILAUDID2 MG; +FERROUS SULFAT325 M2 PO; +FLO1 PO; +GABAPENTIN100 M2; +KEPPRA500 MG PO; +LASIX40 MG PO
== END | disposition home or self-care (01) ==
LOC: US 01-30 14:00
PROC: BT43ZZZ Ultrasonography of Bilateral Kidneys (ICD-10-PCS; principal; 2019-02-02)
DX: N18.3 Chronic kidney disease, stage 3 (moderate) (principal)

== ENCOUNTER 2019-05-22 16:16 | Inpatient (IN) | payer OTHER ==
[~2019-05-22] VITALS: Ht 167.6 cm; Wt 69.5 kg
[~2019-05-22 16:16] MED LIST changes: -FERROUS SULFAT325 M2 PO; -FLO1 PO; -KEPPRA500 MG PO; -LASIX40 MG PO
[2019-05-22 17:06] LABS: BASOPHIL % 0.3 % (0-2); PLATELET COUNT 246 x10^3mcL (130-400)
[2019-05-22 17:09] LABS: RED CELL DISTRIBUTION WIDTH 14.9 % (11.5-14.5)
[2019-05-22 17:29] LABS: ALBUMIN 4.3 g/dL (3.4-5.0); BILIRUBIN TOTAL 0.22 mg/dL (0.20-1.00); CALCIUM 12.2 mg/dL (8.5-10.1); CARBON DIOXIDE 19.1 mmol/L (21-32)
[2019-05-22 17:39] LABS: CREATININE SERUM 4.1 mg/dL (0.6-1.0); POTASSIUM SERUM 8.6 mmol/L (3.5-5.1)
[2019-05-22] MEDS ORDERED: KEPPRA500 MG PO (17:49)
[2019-05-22] MEDS ORDERED: FERROUS SULFAT325 M2 PO (17:50)
[2019-05-22 20:00] VITALS: BP 117/65
[2019-05-22 20:03] VITALS: BP 117/65
[2019-05-22 22:04] VITALS: BP 117/63
[2019-05-23] VITALS: BP 86/56
[2019-05-23 04:15] VITALS: BP 81/63
[2019-05-23 05:31] LABS: BASOPHIL % 0.5 % (0-2); PLATELET COUNT 192 x10^3mcL (130-400)
[2019-05-23 05:34] LABS: CALCIUM 10.3 mg/dL (8.5-10.1); CARBON DIOXIDE 23.9 mmol/L (21-32); CREATININE SERUM 2.6 mg/dL (0.6-1.0); POTASSIUM SERUM 5.3 mmol/L (3.5-5.1)
[2019-05-23 05:35] LABS: RED CELL DISTRIBUTION WIDTH 14.9 % (11.5-14.5)
[2019-05-23 07:43] VITALS: BP 81/45
[2019-05-23 09:39] VITALS: Ht 167.6 cm; Wt 69.5 kg
[2019-05-23 11:36] VITALS: BP 88/49
[2019-05-23 15:35] VITALS: BP 98/56
[2019-05-24 05:25] VITALS: BP 80/47
[2019-05-24 06:19] LABS: BASOPHIL % 0.4 % (0-2); PLATELET COUNT 172 x10^3mcL (130-400)
[2019-05-24 06:34] LABS: CALCIUM 10.5 mg/dL (8.5-10.1); CARBON DIOXIDE 22.1 mmol/L (21-32)
[2019-05-24 06:41] LABS: PHOSPHOROUS 4.3 mg/dL (2.5-4.9); URIC ACID 4.1 mg/dL (2.6-6.0)
[2019-05-24 06:56] LABS: RED CELL DISTRIBUTION WIDTH 14.6 % (11.5-14.5)
[2019-05-24 06:57] LABS: POTASSIUM SERUM 5.7 mmol/L (3.5-5.1)
[2019-05-24 09:40] VITALS: BP 98/50
[2019-05-24 12:56] VITALS: BP 91/43
[2019-05-24 17:13] VITALS: BP 78/36
[2019-05-24 21:20] VITALS: BP 121/86
[2019-05-25 04:56] VITALS: BP 87/43
[2019-05-25 06:06] VITALS: BP 91/55
[2019-05-25 06:26] LABS: CALCIUM 9.1 mg/dL (8.5-10.1); CARBON DIOXIDE 24.9 mmol/L (21-32); CREATININE SERUM 2.3 mg/dL (0.6-1.0); POTASSIUM SERUM 4.8 mmol/L (3.5-5.1)
[2019-05-25 08:40] VITALS: BP 93/45
[2019-05-25 12:40] VITALS: BP 103/53
[2019-05-25 16:32] VITALS: BP 116/43
[2019-05-25 22:44] VITALS: BP 128/53
[2019-05-26 06:38] LABS: BASOPHIL % 0.4 % (0-2); PLATELET COUNT 148 x10^3mcL (130-400)
[2019-05-26 06:46] LABS: RED CELL DISTRIBUTION WIDTH 14.6 % (11.5-14.5)
[2019-05-26 06:51] LABS: CALCIUM 10.2 mg/dL (8.5-10.1); CARBON DIOXIDE 23.5 mmol/L (21-32); CREATININE SERUM 2.4 mg/dL (0.6-1.0)
[2019-05-26 06:52] VITALS: BP 105/51
[2019-05-26 08:32] VITALS: BP 114/53
[2019-05-26 12:18] VITALS: BP 85/51
[2019-05-26 13:45] VITALS: BP 100/48
[2019-05-26 16:15] VITALS: BP 120/58
[2019-05-26 19:46] VITALS: BP 106/47
[2019-05-27 05:08] VITALS: BP 101/48
[2019-05-27 06:35] LABS: BASOPHIL % 0.4 % (0-2); PLATELET COUNT 158 x10^3mcL (130-400)
[2019-05-27 06:59] LABS: RED CELL DISTRIBUTION WIDTH 14.9 % (11.5-14.5)
[2019-05-27 07:28] LABS: CALCIUM 10.2 mg/dL (8.5-10.1); CARBON DIOXIDE 21.8 mmol/L (21-32); CREATININE SERUM 2.5 mg/dL (0.6-1.0); POTASSIUM SERUM 5.5 mmol/L (3.5-5.1)
[2019-05-27 08:40] VITALS: BP 107/55
[2019-05-27 12:35] VITALS: BP 97/48
[2019-05-27 16:56] VITALS: BP 119/40
[2019-05-27 20:56] VITALS: BP 106/67
[2019-05-28 05:37] VITALS: BP 114/62
[2019-05-28 06:23] LABS: BASOPHIL % 0.4 % (0-2); PLATELET COUNT 174 x10^3mcL (130-400)
[2019-05-28 06:30] LABS: CALCIUM 10.2 mg/dL (8.5-10.1); CARBON DIOXIDE 24.4 mmol/L (21-32); CREATININE SERUM 2.7 mg/dL (0.6-1.0)
[2019-05-28 06:31] LABS: POTASSIUM SERUM 5.6 mmol/L (3.5-5.1)
[2019-05-28 07:40] LABS: RED CELL DISTRIBUTION WIDTH 14.9 % (11.5-14.5)
[2019-05-28 08:20] VITALS: BP 106/59
[2019-05-28 10:33] VITALS: BP 106/59
[2019-05-28 11:50] VITALS: BP 104/52
[2019-05-28 17:57] VITALS: BP 125/58
[2019-05-28 21:00] VITALS: BP 105/44
[2019-05-29 05:42] VITALS: BP 101/44
[2019-05-29 06:53] LABS: CARBON DIOXIDE 21.6 mmol/L (21-32); CREATININE SERUM 2.4 mg/dL (0.6-1.0)
[2019-05-29 08:01] LABS: POTASSIUM SERUM 5.8 mmol/L (3.5-5.1)
[2019-05-29 09:19] VITALS: BP 122/45
[2019-05-29 11:46] VITALS: BP 101/47
[2019-05-29 16:47] VITALS: BP 128/53
[2019-05-29 21:13] VITALS: BP 113/60
[2019-05-30 04:53] VITALS: BP 118/69
[2019-05-30 06:28] LABS: CREATININE SERUM 2.6 mg/dL (0.6-1.0); POTASSIUM SERUM 4.9 mmol/L (3.5-5.1)
[2019-05-30 08:14] VITALS: BP 106/50
[2019-05-30 09:39] LABS: BASOPHIL % 0.5 % (0-2); PLATELET COUNT 175 x10^3mcL (130-400)
[2019-05-30 09:40] LABS: RED CELL DISTRIBUTION WIDTH 16.3 % (11.5-14.5)
[2019-05-30 11:55] VITALS: BP 95/43
[2019-05-30 16:06] VITALS: BP 121/61
[2019-05-30 20:45] VITALS: BP 120/55
[2019-05-31 05:40] VITALS: BP 103/56
[2019-05-31 06:28] LABS: BASOPHIL % 0.6 % (0-2); PLATELET COUNT 176 x10^3mcL (130-400)
[2019-05-31 07:09] LABS: CALCIUM 10.1 mg/dL (8.5-10.1); CARBON DIOXIDE 26.2 mmol/L (21-32); CREATININE SERUM 2.5 mg/dL (0.6-1.0); POTASSIUM SERUM 4.9 mmol/L (3.5-5.1)
[2019-05-31 07:27] LABS: RED CELL DISTRIBUTION WIDTH 16.6 % (11.5-14.5)
[2019-05-31 09:16] VITALS: BP 104/60
[2019-05-31 12:39] VITALS: BP 107/57
[2019-05-31 16:28] VITALS: BP 107/57
[2019-05-31] MEDS ORDERED: FLO1 PO (17:05)
[2019-05-31] MEDS ORDERED: LASIX40 MG PO (17:06)
[2019-05-31 18:25] VITALS: BP 95/51
== END 2019-05-31 19:23 | disposition home or self-care (01) | DRG 683 ==
LOC: ED 16:16 → DU 17:45 → IC 17:45 → DU 05-23 20:00
PROVIDERS: Emergency Medicine; Internal Medicine; ADMIT Internal Medicine
PROC: 06HM33Z Insertion of Infusion Device into Right Femoral Vein, Percutaneous Approach (ICD-10-PCS; principal; 2019-05-22)
PROC: 5A1D70Z Performance of Urinary Filtration, Intermittent, Less than 6 Hours Per Day (ICD-10-PCS; 2019-05-22)
PROC: 5A1D70Z Performance of Urinary Filtration, Intermittent, Less than 6 Hours Per Day (ICD-10-PCS; 2019-05-24)
PROC: 5A1D70Z Performance of Urinary Filtration, Intermittent, Less than 6 Hours Per Day (ICD-10-PCS; 2019-05-28)
DX: N17.9 Acute kidney failure, unspecified (principal); Z68.1 Body mass index [BMI] 19.9 or less, adult; F11.20 Opioid dependence, uncomplicated; E87.2 Acidosis; I50.20 Unspecified systolic (congestive) heart failure; E87.5 Hyperkalemia; R33.9 Retention of urine, unspecified; E83.52 Hypercalcemia; I12.9 Hypertensive chronic kidney disease with stage 1 through stage 4 chronic kidney disease, or unspecified chronic kidney disease; E11.22 Type 2 diabetes mellitus with diabetic chronic kidney disease; N18.9 Chronic kidney disease, unspecified; E11.65 Type 2 diabetes mellitus with hyperglycemia; M19.90 Unspecified osteoarthritis, unspecified site; G40.909 Epilepsy, unspecified, not intractable, without status epilepticus; E78.5 Hyperlipidemia, unspecified; D64.9 Anemia, unspecified; Z89.422 Acquired absence of other left toe(s); Z87.11 Personal history of peptic ulcer disease; Z79.84 Long term (current) use of oral hypoglycemic drugs; Z79.82 Long term (current) use of aspirin; Z79.4 Long term (current) use of insulin
CPT/HCPCS: 36556; 82962; 83880; 86580; 90658; 97110-GP; 97116-GP; 97530-GP; A4719; G0378; J0885-EC; J1644; J1815; J1940; J2270; J2997; J3490; J7030; J7050; Q0092